=== PATIENT | female | born 1955 | race Caucasian/White ===

== ENCOUNTER 2017-09-03 00:32 | Inpatient (IN) | payer OTHER ==
[~2017-09-03] VITALS: Ht 165.1 cm; Wt 57.8 kg
[2017-09-03 05:40] VITALS: BP 92/52
[2017-09-03] MEDS ORDERED: DEPAKOTE ER500 MG PO (05:42)
[2017-09-03] MEDS ORDERED: LATUDA120 MG PO (05:47)
[2017-09-03] MEDS ORDERED: XANAX0.5 MG PO (05:48)
[2017-09-03 06:02] VITALS: BP 92/52
[2017-09-03 09:45] VITALS: BP 140/60
[2017-09-03] MEDS ORDERED: DITROPAN5 MG PO (10:52)
[2017-09-03] MEDS ORDERED: SPIRIVA18 MCG IH (10:52)
[2017-09-03] MEDS ORDERED: TIROSINT25 MCG PO (10:53)
[2017-09-03] MEDS ORDERED: PROLIXIN10 MG PO (10:54)
[2017-09-03] MEDS ORDERED: COMBIVENT RESPIM4 GM IH (10:54)
[2017-09-03] MEDS ORDERED: ZYPREXA20 MG PO (10:55)
[2017-09-03 17:34] VITALS: BP 140/70
[2017-09-04 16:31] VITALS: BP 125/50
[2017-09-05 06:52] LABS: BASOPHIL (%) 0.6 % (0-1); EOSINOPHIL (%) 1.3 % (0-5); EOSINOPHIL COUNT 0.1 K/uL (0-0.3); HEMATOCRIT 41.2 % (36.0-46.0); IMMATURE GRANULOCYTE (%) 0.6 % (0.0-0.7); LYMPHOCYTE (%) 16.4 % (15-42); LYMPHOCYTE COUNT 1.2 K/uL (1.0-2.8); MCH 29.7 PG (29.0-34.0); MCHC 31.6 G/DL (30.0-36.0); MCV 94.3 FL (83-99); MONOCYTE (%) 11.7 % (3-12); MONOCYTE COUNT 0.8 K/uL (0-0.8); NEUTROPHIL (%) 69.4 % (45-76); PLATELET COUNT 260 K/uL (156-360); RBC DIS.WIDTH-CV 16.3 % (11.8-14.6); RBC DIS.WIDTH-SD 56.7 % (39-53); RED BLOOD COUNT 4.37 M/uL (3.80-5.20); WHITE BLOOD COUNT 7.2 K/uL (4.1-10.2)
[2017-09-05 07:58] LABS: THYROTROPIN (TSH) 2.3 MIU/L (0.4-5.5)
[2017-09-05 07:59] LABS: CHLORIDE 95 MEQ/L (99-109); CREATININE 0.8 MG/DL (0.6-1.3); GFR ESTIMATE (CALCULATED) > 59 mL/min/; GLUCOSE 116 mg/dL (70-99); POTASSIUM 4.2 MEQ/L (3.7-5.4); SODIUM 139 MEQ/L (136-147); UREA NITROGEN (BUN) 12 mg/dL (9-23)
[2017-09-05 08:00] LABS: CARBON DIOXIDE (BICARBONATE) > 40.0 MEQ/L (20-31)
[2017-09-05 08:04] LABS: FOLIC ACID (FOLATE) 12.7 NG/ML (5.0-22.0)
[2017-09-05 09:23] VITALS: BP 130/62
[2017-09-05 16:53] VITALS: BP 109/51
[2017-09-06 08:31] VITALS: BP 125/60
[2017-09-06 15:33] VITALS: BP 119/56
[2017-09-06 18:01] VITALS: BP 121/82
[2017-09-07 07:54] VITALS: BP 117/57
[2017-09-07 16:40] VITALS: BP 114/66
[2017-09-08 08:08] VITALS: BP 152/72
[2017-09-08 16:06] VITALS: BP 93/51
[2017-09-09 07:58] VITALS: BP 129/62
[2017-09-09 16:17] VITALS: BP 116/55
[2017-09-10 08:22] VITALS: BP 106/45
[2017-09-10 15:19] VITALS: BP 96/46
[2017-09-11 08:04] VITALS: BP 145/65
[2017-09-11 17:02] VITALS: BP 97/41
[2017-09-12 07:41] VITALS: BP 130/61
[2017-09-12 14:56] VITALS: BP 101/49
[2017-09-13 07:32] VITALS: BP 133/73
[2017-09-13 15:12] VITALS: BP 96/42
[2017-09-14 07:50] VITALS: BP 104/53
[2017-09-14 16:21] VITALS: BP 126/59
[2017-09-15 07:34] VITALS: BP 112/54
[2017-09-15 16:09] VITALS: BP 119/58
[2017-09-16 07:41] VITALS: BP 177/71
[2017-09-16] MEDS ORDERED: VITAMIN D31000 UNI2 PO (08:52)
[2017-09-16] MEDS ORDERED: DEPAKOTE ER500 MG PO (08:52)
[2017-09-16] MEDS ORDERED: ALPRAZOLAM0.5 MG PO (08:52)
[2017-09-16] MEDS ORDERED: FLUPHENAZINE HC10 MG PO (08:52)
[2017-09-16] MEDS ORDERED: NICOTINE PATCH1 EAC2 TD (08:52)
[2017-09-16 09:53] VITALS: BP 114/56
== END 2017-09-16 13:27 | disposition home or self-care (01) | DRG 885 ==
LOC: 1WEST 00:32 → ENRESERV 02:01 → 1WEST 05:15
PROVIDERS: Psychiatry & Neurology Psychiatry
DX: F25.0 Schizoaffective disorder, bipolar type (principal); B85.0 Pediculosis due to Pediculus humanus capitis; J44.9 Chronic obstructive pulmonary disease, unspecified; E03.9 Hypothyroidism, unspecified; F17.200 Nicotine dependence, unspecified, uncomplicated; Z91.14 Patient's other noncompliance with medication regimen; Z99.81 Dependence on supplemental oxygen
CPT/HCPCS: 80048; 82306; 82607; 82746; 84443; 85025; 94640; 94640 76; 94760; 94799; 97150 GO; 97166 GO; 99202